=== PATIENT | male | born 1965 | race Caucasian/White ===

== ENCOUNTER → 2020-01-17 | Outpatient (CLI) | payer OTHER ==
--- NOTE | 2020-01-17 13:37 | 2DMMODE ---
[place] [address] 2 D/M-MODE ECHOCARDIOGRAM Name: CHERY MOTLEY Room: [facility]#: [id number] Admission: 01/17/20 Attend Phys: Luke Nobles, Discharge: Date of : 67 Date of Service: 01/17/20 1336 Report #: [id number] THIS REPORT FOR: cc: Demarco Price MD, Neal A. MD Liston, Michael J. MD [facility] ~ APPROVED REPORT Study performed: 01/17/2020 11:01:24 EXAM: Comprehensive 2D, Doppler, and color-flow Echocardiogram Patient Location: Out-Patient BSA: 2.24 HR: 63 bpm BP: 136/95 mmHg Other Information Study Quality: Good Indications CAD 2D Dimensions IVSd: 12.61 (7-11mm) LVOT Diam: 21.92 (18-24mm) LVDd: 55.95 mm PWd: 10.87 (7-11mm) Ascending Ao: 34.08 (22-36mm) LVDs: 49.11 (25-40mm) Aortic Root: 38.78 mm Volumes Left Atrial Volume (Systole) LA ESV Index: 23.40 mL/m2 Aortic Valve AoV Peak Cosme.: 0.86 m/s AO Peak Gr.: 2.93 mmHg LVOT Max P.51 mmHg AO Mean Gr.: 1.59 mmHg LVOT Mean P.67 mmHg LVOT Max V: 0.61 m/s AO V2 VTI: 15.78 cm LVOT Mean V: 0.37 m/s ANALI (VTI): 2.98 cm2 LVOT V1 VTI: 12.44 cm Mitral Valve E/A Ratio: 0.69 [place] [address] 2 D/M-MODE ECHOCARDIOGRAM Name: CHERY MOTLEY Room: [facility]#: [id number] Admission: 01/17/20 Attend Phys: Luke Nobles, Discharge: Date of : 67 Date of Service: 01/17/20 1336 Report #: [id number] MV Decel. Time: 225.84 ms MV E Max Cosme.: 0.48 m/s MV PHT: 65.49 ms MVA (PHT): 3.36 cm2 TDI E/Lateral E': 4.80 E/Medial E': 3.69 Medial E' Cosme.: 0.13 m/s Lateral E' Cosme.: 0.10 m/s Pulmonary Valve PV Peak Cosme.: 0.72 m/s PV Peak Gr.: 2.10 mmHg Tricuspid Valve RAP Estimate: 5.00 mmHg TR Peak Gr.: 14.63 mmHg RVSP: 19.63 mmHg PA Pressure: 19.63 mmHg Left Ventricle The left ventricle is normal size. There is global hypokinesis with akinesis of the lateral wall. There is normal left ventricular wall thickness. Left ventricular ejection fraction is moderate to severely decreased. LVEF is 30-35%. Grade I - abnormal relaxation pattern. Right Ventricle The right ventricle is normal size. The right ventricular systolic function is normal. Device lead is present in the right ventricle. Atria The left atrium size is normal. The right atrium size is normal. Aortic Valve The aortic valve is normal in structure. No aortic regurgitation is present. There is no aortic valvular stenosis. Mitral Valve The mitral valve is normal in structure. Mild mitral regurgitation. No evidence of mitral valve stenosis. Tricuspid Valve The tricuspid valve is normal in structure. Trace to mild tricuspid regurgitation. [place] [address] 2 D/M-MODE ECHOCARDIOGRAM Name: CHERY MOTLEY Room: [facility]#: [id number] Admission: 01/17/20 Attend Phys: Luke Nobles, Discharge: Date of : 67 Date of Service: 01/17/20 1336 Report #: [id number] The pulmonary valve is normal in structure. There is no pulmonic valvular regurgitation. Great Vessels The aortic root is normal in size. IVC is normal in size and collapses >50% with inspiration. Pericardium There is no pericardial effusion. <Conclusion> The left ventricle is normal size. There is normal left ventricular wall thickness. Left ventricular ejection fraction is moderate to severely decreased. LVEF is 30-35%. Grade I - abnormal relaxation pattern. There is global hypokinesis with akinesis of the lateral wall. Device lead is present in the right ventricle. Mild mitral regurgitation. Trace to mild tricuspid regurgitation. <ELECTRONICALLY SIGNED> By: Luke Nobles MD, [facility] 01/17/20 1336 35 35 Luke Nobles MD, FACC /INF
--- NOTE | 2020-01-17 16:42 | CARDNUC ---
[place] [address] CARDIAC NUCLEAR IMAGING REPORT Name: CHERY MOTLEY Room: [facility]#: [id number] Admission: 01/17/20 Attend Phys: Luke Nobles, Discharge: Date of : 67 Date of Service: 01/17/20 1641 Report #: [id number] THIS REPORT FOR: cc: Demarco Price MD, Neal A. MD Liston, Michael J. MD [facility] ~ APPROVED REPORT Study performed: 01/17/2020 09:30:19 Exam: Nuclear Stress Test Indication: PERERA, NSVT/V-Tach, Dizziness, Palpitations. Patient Location: Out-Patient Stress Tech: Romy Gutierrez Stress Nurse: Maria Luisa Tobar Tech:KATHY Moreland Ht: 6 ft 0 in Wt: 235 lbs BSA: 2.28 m2 BMI: 31.86 Medical History Medical History: PERERA, NSVT/V-Tach, CHF, Cardiomyopathy, ICD, Fatigue, Daytime Somnolence, Snoring, Dizziness, Palpitations, HTN, HLD, CAD s/p NJ, CAD s/p stent. Medications: ASA, Carvedilol, Lisinopril, Rosuvastatin. Allergies: No known drug allergies Cardiac Risk Factors: Age, FHX of CAD, HTN, Hyperlipidemia, SOB, CHF, Cardiomyopathy, VTach/NSVT. Previous Cardiac Procedures: Myocardial infarction, PCI, ICD. Pretest Chest Pain Characteristics: No chest pain Exercise History: Physically active Physical Disabilities: ICD. Meds Held (24 hrs): Carvedilol. Stress Test Details Stress Test: Pharmacologic stress testing performed using 0.4 mg of regadenoson per 5 mL given IV over 10 seconds. Reason for pharmacologic stress test: ICD. HR Resting HR: 63 bpm Max Heart Rate (APMHR): 167 bpm Max HR Achieved: 97 bpm Target HR (85% APMHR): 141 bpm % of APMHR: 58 Recovery HR: 89 [place] [address] CARDIAC NUCLEAR IMAGING REPORT Name: MOTLEYCHERY Room: [facility]#: [id number] Admission: 01/17/20 Attend Phys: Luke Nobles, Discharge: Date of : 67 Date of Service: 01/17/20 1641 Report #: [id number] Resting BP: 136/95 mmHg Max BP: 130/86 mmHg ECG Resting ECG: Sinus Rhythm Stress ECG: Sinus Rhythm ST Change: None Arrhythmia: None Recovery ECG: Sinus Rhythm Recovery ST Change: None Recovery Arrhythmia: None Clinical Reason for Termination: Completed protocol Stress Symptoms: None Exercise duration: 00 min 00 sec Exercise capacity: 1.00 METs The patient tolerated Lexiscan infusion without significant cardiac symptoms. Nurse Comments A 54 year old male with ICD presented for a sitting Lexiscan r/t VTach/NSVT, Cardiomyopathy and CAD s/p NJ, PCI. Test well tolerated. Recovery unremarkable. Patient was stable and stated he felt good when escorted to Nuclear Medicine for imaging. Stress ECG Conclusion Baseline twelve-lead EKG shows sinus rhythm with some ST elevation in the inferior leads that appears to be chronic and persistent. EKGs obtained during and post Lexiscan infusion show sinus rhythm with no significant ST segment changes when compared to baseline. There were no stress-induced arrhythmias. NM EXAM: Myocardial Perfusion REST/STRESS Imaging Protocol: Rest Tc-99m/Stress Tc-99m 1 day Resting Data Rest SPECT myocardial perfusion imaging was performed in supine position 30 minutes following the intravenous injection of 9.7 mCi of Tc-99m Sestamibi. Time of rest injection: 809 Date: 01/17/2020 The images were gated to evaluate regional wall motion and calculate left ventricular ejection fraction. Administration Route: [place] [address] CARDIAC NUCLEAR IMAGING REPORT Name: CHERY MOTLEY Room: [facility] Valerie#: [id number] Admission: 01/17/20 Attend Phys: Luke Nobles, Discharge: Date of : 67 Date of Service: 01/17/20 1641 Report #: [id number] Administration Site: Right Wrist Pharmacologic Stress Pharmacologic stress test was performed by injecting Regadenoson 0.4 mg IV push followed by the intravenous injection of 34.2 mCi of Tc-99m Sestamibi. Time of stress injection: 929 Date: 01/17/2020 Administration Route: IV Administration Site: Right Wrist Gated Stress SPECT was performed 40 minutes after stress injection. The images were gated to evaluate regional wall motion and calculate left ventricular ejection fraction. Prone imaging was performed. Study Quality Study: Good Study Data At rest, the left ventricular ejection fraction was 37%.. Post stress, the left ventricular ejection was 45%.. TID = 0.99. Perfusion Perfusion study show a large in size severe in intensity defect involving the majority of the lateral wall that is fixed. There were no areas of significant ischemia identified. Wall Motion Gated studies appear to be technically faulty. Review of the raw data suggests akinesis of the lateral wall with mildly diminished left ventricular systolic function. Nuclear Conclusion ECG Findings: negative for ischemia Clinical Findings: negative for ischemia Nuclear Findings: negative for ischemia Exercise Capacity: not assessed Left Ventricular Function: abnormal Perfusion study show evidence of extensive lateral wall infarct. Global LV systolic function is mildly decreased with wall motion abnormalities as outlined above. There was no evidence of stress-induced ischemia. This is not a high risk study. <Conclusion> Baseline twelve-lead EKG shows sinus rhythm [place] [address] CARDIAC NUCLEAR IMAGING REPORT Name: CHERY MOTLEY Room: [facility]#: [id number] Admission: 01/17/20 Attend Phys: Luke Nobles, Discharge: Date of : 67 Date of Service: 01/17/20 1641 Report #: [id number] the inferior leads that appears to be chronic and persistent. EKGs obtained during and post Lexiscan infusion show sinus rhythm with no significant ST segment changes when compared to baseline. There were no stress-induced arrhythmias. <ELECTRONICALLY SIGNED> By: Luke Nobles MD, FACC 01/17/201640 40 40 Luke Nobles MD, FACC /INF
== END ==
LOC: M.CRD 01-02 10:02 → M.NUC 07:28 → M.CRD 09:00
PROVIDERS: ATTEND Internal Medicine Cardiovascular Disease
DX: I08.1 Rheumatic disorders of both mitral and tricuspid valves (principal); I25.10 Atherosclerotic heart disease of native coronary artery without angina pectoris; I47.2 Ventricular tachycardia; I25.5 Ischemic cardiomyopathy; R40.0 Somnolence; R06.83 Snoring; R53.83 Other fatigue